=== PATIENT | female | born 1945 | race Caucasian/White ===

== ENCOUNTER 2017-04-26 11:00 | Inpatient (IN) | payer OTHER, BC ==
--- NOTE | 2017-05-09 11:31 | HP ---
Satellite H - Chief Complaint Chief Complaint: right knee pain - Past Medical History Allergies/Adverse Reactions: Allergies Allergy/AdvReac Type Severity Reaction Status Date / Time Iodine and Iodide Containing Allergy Severe RESPIRATORY Verified 04/25/17 12:23 Produc DISTRESS Shellfish Allergy Severe Swelling, Verified 04/25/17 11:59 RESPIRATORY DISTRESS No Known Drug Allergies Allergy Verified 04/25/17 11:59 - Current Medications Current Medications: Home Medications Medication Instructions Recorded Bimatoprost [Lumigan] 1 gtt OS DAILY 09/29/11 Brimonidine Tartrate/Timolol 1 gtt OS BID 09/29/11 [Combigan 0.2%-0.5% Eye Drops] Levothyroxine [Synthroid -] 100 mcg PO DAILY 09/29/11 Meclizine HCl [Antivert] 25 mg PO TID PRN #14 tablet 09/29/11 Albuterol Sulfate [Proventil HFA 1 - 2 inh PO TID PRN 04/25/17 Inhaler -] Dexlansoprazole [Dexilant] 60 mg PO DAILY 04/25/17 Duloxetine HCl [Cymbalta -] 30 mg PO HS 04/25/17 Satellite Physical Exam - Physical Examination General Appearance: Well Nourished, Well Developed, Alert & Oriented x3 ENT: Clear Lung: Normal air movement Heart: Regular rate & rhythm Extremities: Other (right knee- + swelling, + ttp, decr rom, nvi xrays show grade 4 tricompartmental djd) Neurological: Intact, Alert, Oriented Satellite Impression/Plan - Impression/Plan Impression: right knee djd Operative Procedure: right marisa tkr Date to be Performed: 05/10/17
[2017-05-10] MEDS ORDERED: CEFAZOLIN 2 GM in DEXTROSE 5%-WATER - 50 ML IVPB ONE (06:31)
[2017-05-10] MEDS ORDERED: GABAPENTIN 300 MG CAPSULE (FP) PO ONE (06:31)
[2017-05-10] MEDS ORDERED: CELECOXIB 200 MG CAPSULE PO ONE (06:31)
[2017-05-10] MEDS ORDERED: TRANEXAMIC ACID 1000 MG/10 ML VIAL IVPUSH ONE (06:31)
[2017-05-10] MEDS ORDERED: oxyCODONE HCL 10 MG SUSTAINED ACTING TABLET PO ONE (06:31)
[2017-05-10] MEDS ORDERED: BUPIVACAINE LIPOSOME/PF (EXPAREL) 266 MG/20 ML VIAL ONE (06:47)
[2017-05-10] MEDS ORDERED: DEXAMETHASONE SOD PHOSPHATE/PF 10 MG/ML SDV ONE (06:47)
[2017-05-10] MEDS ORDERED: BUPIVACAINE HCL/PF (5 MG/ML) 30 ML VIAL IJ ONE (06:48)
[2017-05-10] MEDS ORDERED: MIDAZOLAM HCL 2 MG/2 ML SINGLE DOSE VIAL ONE ×2 (06:48→08:12)
[2017-05-10] MEDS ORDERED: VANCOMYCIN 1,000 MG VIAL (RESTRICTED TO ID ONLY) ONE (07:05)
[2017-05-10] MEDS ORDERED: ceFAZolin SODIUM 1 GM VIAL ONE (07:05)
[2017-05-10 07:13] VITALS: BMI 38.6
[2017-05-10] MEDS ORDERED: PROPOFOL 20 ML ONE ×2 (08:27)
[2017-05-10] MEDS ORDERED: ePHEDrine SULFATE 50 MG/1 ML AMPULE ONE (08:41)
[2017-05-10] MEDS ORDERED: SUCCINYLCHOLINE CHLORIDE 200 MG/10 ML VIAL ONE (09:08)
[2017-05-10] MEDS ORDERED: TRANEXAMIC ACID 1000 MG/10 ML VIAL ONE (09:36)
[2017-05-10] MEDS ORDERED: VANCOMYCIN 1,000 MG VIAL (RESTRICTED TO ID ONLY) IVPB ONE (09:42)
[2017-05-10] MEDS ORDERED: oxyCODONE HCL 5 MG TABLET PO PRN (09:58)
[2017-05-10] MEDS ORDERED: ONDANSETRON 4 MG/2 ML VIAL IVPUSH PRN ×2 (09:58→10:15)
[2017-05-10] MEDS ORDERED: LACTATED RINGERS SOLUTION 1,000 ML IV SCH ×2 (10:00→10:15)
[2017-05-10] MEDS ORDERED: MAGNESIUM HYDROX 2400MG/30ML ORAL SUSPENSION 30 ML CUP PO PRN (10:15)
[2017-05-10] MEDS ORDERED: MAG HYDROX/AL HYDROX/SIMETH 30 ML UNIT-DOSE CUP PO PRN (10:15)
[2017-05-10] MEDS ORDERED: ALBUTEROL SO4 18 GM HFA INHALER IH PRN (10:17)
[2017-05-10] MEDS ORDERED: MECLIZINE HCL 25 MG TABLET (FP) PO PRN (10:17)
--- NOTE | 2017-05-10 10:19 | OP ---
Operative Note - Note: Operative Date: 05/10/17 (anastasiia) Pre-Operative Diagnosis: right knee djd Operation: right marisa tkr Post-Operative Diagnosis: Same as Pre-op Surgeon: Ramsey Traylor Support Coordinator: Nasir Wynne Anesthesiologist/DOFFER: Justice Nagy Anesthesia: Spinal, Local Specimens Removed: bone fragments Estimated Blood Loss (mls): 100 Operative Report Dictated: Yes
[2017-05-10] MEDS: ACETAMINOPHEN 325 MG TABLET (FP) PO SCH ×3 (10:59→21:25)
[2017-05-10] MEDS: oxyCODONE HCL 5 MG TABLET PO PRN ×3 (11:52→21:27)
[2017-05-10] MEDS: CEFAZOLIN 2 GM/D5W 2 GM/50 ML ML IVPB SCH ×2 (15:10→23:27)
[2017-05-10] MEDS: oxyCODONE HCL 10 MG SUSTAINED ACTING TABLET PO SCH ×2 (19:56→21:24)
[2017-05-10] MEDS ORDERED: PT OWN MED DRAWER 7, Y5N ONE (21:21)
[2017-05-10] MEDS: SENNOSIDES/DOCUSATE COMBO (SENNA PLUS) TABLET (UD) PO SCH (21:26)
[2017-05-10] MEDS: DULoxetine HCL 30 MG CAPSULE.DR (FP) PO SCH (21:27)
[2017-05-10] MEDS: LATANOPROST 0.005% OPHTH SOLN 2.5ML BOTTLE OS SCH (21:28)
[2017-05-10] MEDS: BRIMONIDINE TARTRATE 0.2% OPHTHALMIC 5 ML BOTTLE OS SCH (21:28)
[2017-05-10] MEDS: TIMOLOL 0.5% OPHTHALMIC SOL 5 ML BOTTLE OS SCH (21:28)
[2017-05-10] MEDS ORDERED: PATIENT'S OWN MEDICATION (NON-FORMULARY) (Brimonidine Tartrate/Timolol [Combigan 0.2%-0.5% OS SCH (22:00)
[2017-05-11] MEDS: ACETAMINOPHEN 325 MG TABLET (FP) PO SCH ×4 (04:00→21:40)
[2017-05-11] MEDS: LEVOTHYROXINE NA 100 MCG TABLET (FP) PO SCH (06:15)
[2017-05-11 08:58] LABS: MCHC 34.7 g/dl (32.0-36.0)
[2017-05-11 09:11] LABS: HEMATOCRIT 36.3 % (32.4-45.2); HEMOGLOBIN 12.6 GM/dl (10.7-15.3); MEAN PLT VOLUME 8.4 fl (7.5-11.1); PLATELET COUNT 358 K/MM3 (134-434); RBC 3.82 M/mm3 (3.60-5.2); WHITE BLOOD COUNT 16.3 K/mm3 (4.0-10.8)
--- NOTE | 2017-05-11 09:36 | PN ---
Progress Note (short form) - Note Progress Note: 71F POD1 s/p R TKR under spinal anesthetic with peripheral nerve blocks for post operative pain relief. Pt states that pain is well controlled, and reports no anesthetic complications. AVSS. Sensory and motor function is intact in bilateral lower extremities. Continue current regimen.
[2017-05-11] MEDS ORDERED: PT OWN MED DRAWER 7, Y5N ONE (09:39)
[2017-05-11] MEDS: oxyCODONE HCL 10 MG SUSTAINED ACTING TABLET PO SCH ×2 (09:42→21:39)
[2017-05-11] MEDS: PANTOPRAZOLE 40 MG TABLET (FP) PO SCH (09:42)
[2017-05-11] MEDS: MULTIVITAMINS (DAILY MVI) TABLET (FP) PO SCH (09:42)
[2017-05-11] MEDS: TIMOLOL 0.5% OPHTHALMIC SOL 5 ML BOTTLE OS SCH ×2 (09:43→21:41)
[2017-05-11] MEDS: SENNOSIDES/DOCUSATE COMBO (SENNA PLUS) TABLET (UD) PO SCH ×2 (09:43→21:39)
[2017-05-11] MEDS: BRIMONIDINE TARTRATE 0.2% OPHTHALMIC 5 ML BOTTLE OS SCH ×2 (09:43→21:42)
[2017-05-11] MEDS: ASPIRIN 325 MG TABLET PO SCH (09:44)
[2017-05-11] MEDS ORDERED: PATIENT'S OWN MEDICATION (NON-FORMULARY) (Dexlansoprazole [Dexilant] 60 MG) PO SCH (10:00)
[2017-05-11] MEDS ORDERED: BIMATOPROST OS SCH (10:00)
--- NOTE | 2017-05-11 12:05 | PATH ---
Surgical Pathology Report Patient Name: RHONDA PLATT Med. Rec. #: [id number] /Age/Gender: 1945 (Age: 71) / F Account: [id number] Location: [facility] MED-SURG Taken: 05/10/2017 Received: 05/10/2017 Reported: 05/11/2017 Physicians: Ramsey Traylor M.D. Specimen(s) Received RIGHT KNEE BONES Clinical History Osteoarthritis right knee Final Diagnosis KNEE, RIGHT, TOTAL KNEE REPLACEMENT: DEGENERATIVE JOINT DISEASE. Electronically Signed Esha Licea M.D. Gross Description Received in formalin labeled "right knee bones," is a 13.0 x 7.5 x 2.4 cm aggregate of multiple irregular portions of bone and soft tissue. The tibial plateau measures 7.0 x 4.6 x 1.5 cm. There are multiple areas of eburnation identified, measuring up to 2.4 cm in greatest dimension. The remaining articular surfaces are quintero-yellow and diffusely granular. The underlying trabecular bone is yellow and hard. Jewel Bearing Turner sections are submitted in one cassette, following decalcification. /05/10/201705/10/2017
[2017-05-11] MEDS: DULoxetine HCL 30 MG CAPSULE.DR (FP) PO SCH (21:40)
[2017-05-11] MEDS: LATANOPROST 0.005% OPHTH SOLN 2.5ML BOTTLE OS SCH (21:42)
[2017-05-12] MEDS: oxyCODONE HCL 5 MG TABLET PO PRN (02:18)
[2017-05-12] MEDS: ACETAMINOPHEN 325 MG TABLET (FP) PO SCH ×2 (05:47→09:33)
[2017-05-12] MEDS: LEVOTHYROXINE NA 100 MCG TABLET (FP) PO SCH (06:27)
[2017-05-12 07:10] VITALS: BP 141/60; PULSE 77; TEMP 97.5
[2017-05-12 08:06] LABS: HEMATOCRIT 31.5 % (32.4-45.2); HEMOGLOBIN 10.9 GM/dl (10.7-15.3); MCH 32.9 pg (25.7-33.7); MCHC 34.6 g/dl (32.0-36.0); MEAN CELL VOLUME 95.1 fl (80-96); MEAN PLT VOLUME 8.4 fl (7.5-11.1); PLATELET COUNT 283 K/MM3 (134-434); RBC 3.32 M/mm3 (3.60-5.2); RDW 12.1 % (11.6-15.6); WHITE BLOOD COUNT 10.9 K/mm3 (4.0-10.8)
--- NOTE | 2017-05-12 08:20 | PN ---
Progress Note (short form) - Note Progress Note: Ortho Pt seen and examined s/p right marisa tkr pod #2 Selected Entries 05/12/17 05:00 Temperature 97.5 F L Pulse Rate 77 Respiratory 19 Rate Blood Pressure 141/60 Laboratory Tests 05/11/17 08:13 WBC 16.3 H Hgb 12.6 Hct 36.3 Plt Count 358 dressing c/d/i, calf soft, nt rom 0-40, nvi a/p PT dvt ppx pain control d/c home today f/u in 1 week
--- NOTE | 2017-05-12 08:21 | DS ---
Physical Examination Vital Signs: Vital Signs Temperature 97.5 F L 05/12/17 05:00 Pulse Rate 77 05/12/17 05:00 Respiratory Rate 19 05/12/17 05:00 Blood Pressure 141/60 05/12/17 05:00 O2 Sat by Pulse Oximetry (%) 96 05/12/17 07:09 Discharge Summary Reason For Visit: OSTEOARTHRITIS Procedures: Principal: s/p right marisa tkr Hospital Course: admitted for elective right tkr, uneventful post-op ,stable for d/c Condition: Good - Instructions Diet, Activity, Other Instructions: Post-op Instructions-Total Knee Replacement Call the office for a follow-up appointment in 1 week - [phone] Aspirin 325mg daily for 6 weeks. Pain medication was sent into your pharmacy. Apply Graduated Compression Stockings (TEDs) to both lower extremities- remove daily for hygiene ONLY Apply Sequential Compression Device (SCDs) to both Lower extremities remove for PT and hygiene ONLY Apply cold packs to affected area for 15 minutes every 2 hours. Physical Therapist will come to your home for the first 5 days. You will be set up with outpatient PT at your first post-operative visit. Patient may ambulate as tolerated-encourage self care (at least every 2-3 hours while awake) with walker or cane Maintain Aquacel (waterproof) dressing to operative wound (will be removed by surgeon at first office visit) Shower with Aquacel dressing in place-if Aquacel integrity compromised, remove and apply dry sterile dressing and notify Orthopedist. DO NOT SHOWER unless Orthopedists approves without Aquacel dressing CONTACT THE OFFICE FOR ANY CHANGE IN YOUR CONDITION (for example-fever greater than 102 degrees, excessive bleeding from operative site, purulent drainage, severe swelling or pain) GO TO THE EMERGENCY ROOM IF THERE IS A MEDICAL EMERGENCY Knee Precautions: * Keep a rolled towel under affected heel while in bed or chair (to keep knee in extension) * Keep affected leg elevated except during mealtimes * DO NOT PLACE PILLOW UNDER AFFECTED KNEE * If you have any questions, please do not hesitate to call the office - . Referrals: Ramsey Traylor MD [Staff Physician] - Disposition: VNS/HOME HEALTH CARE - Home Medications Comprehensive Discharge Medication List: Ambulatory Orders Bimatoprost [Lumigan] 1 gtt OS DAILY 09/29/11 Brimonidine Tartrate/Timolol [Combigan 0.2%-0.5% Eye Drops] 1 gtt OS BID Levothyroxine [Synthroid -] 100 mcg PO DAILY 09/29/11 Meclizine HCl [Antivert] 25 mg PO TID PRN #14 tablet 09/29/11 Albuterol Sulfate [Proventil HFA Inhaler -] 1 - 2 inh PO TID PRN 04/25/17 Dexlansoprazole [Dexilant] 60 mg PO DAILY 04/25/17 Duloxetine HCl [Cymbalta -] 30 mg PO HS 04/25/17 Aspirin [ASA -] 325 mg PO DAILY@0800 tablet 05/10/17 Oxycodone HCl/Acetaminophen [Percocet 5-325 mg Tablet] 1 - 2 tab PO Q6H #50 tab MDD 8 05/10/17
[2017-05-12] MEDS: MULTIVITAMINS (DAILY MVI) TABLET (FP) PO SCH (09:31)
[2017-05-12] MEDS: ASPIRIN 325 MG TABLET PO SCH (09:32)
[2017-05-12] MEDS: PANTOPRAZOLE 40 MG TABLET (FP) PO SCH (09:33)
[2017-05-12] MEDS: SENNOSIDES/DOCUSATE COMBO (SENNA PLUS) TABLET (UD) PO SCH (09:34)
[2017-05-12] MEDS: TIMOLOL 0.5% OPHTHALMIC SOL 5 ML BOTTLE OS SCH (09:34)
[2017-05-12] MEDS: oxyCODONE HCL 10 MG SUSTAINED ACTING TABLET PO SCH (09:35)
[2017-05-12] MEDS: BRIMONIDINE TARTRATE 0.2% OPHTHALMIC 5 ML BOTTLE OS SCH (09:35)
--- NOTE | 2017-05-12 14:43 | SPEC ---
DATE OF OPERATION: 05/10/2017 PREOPERATIVE DIAGNOSIS: Degenerative joint disease, right knee. POSTOPERATIVE DIAGNOSIS: Degenerative joint disease, right knee. PROCEDURE: Right total knee replacement with robotic-assisted navigation (Makoplasty). SURGICAL ATTENDING: Ramsey Traylor M.D. SENIOR RESEARCH CONSULTANT: Flor Pereyra ANESTHESIA: Regional and spinal. CLOSURE: A Triathlon cemented knee system with a 3 femur, 3 tibia, 11 TS polyethylene, and 32 patella, number 1 Vicryl fascia, 0 and 2-0 subcutaneous, 3-0 Monocryl subcuticular with skin glue for skin, 4-0 undyed Vicryl for pin sites. ESTIMATED BLOOD LOSS: Less than 100 mL. COMPLICATIONS: None. CONDITION: To recovery room in stable condition. DESCRIPTION OF OPERATIVE PROCEDURE: Patient was taken to the operating room on May 10, 2017. Regional and spinal anesthesia was administered by the anesthesiologist. IV Kefzol and TXA were administered by the anesthesiologist. Well-padded pneumatic tourniquet was placed on the proximal thigh. The right lower extremity was prepped and draped in the usual sterile fashion. The leg was exsanguinated with an Esmarch bandage, and tourniquet was inflated to 275 mmHg. A 12 to 15-cm longitudinal midline incision was incised while centered over the patella. The dissection was carried down to the level of the extensor mechanism with sufficient flaps made to adequately perform the procedure. A medial parapatellar arthrotomy was then performed. We made a cuff of tissue on the patella for later closure. The patella was inverted, the knee was flexed up. The fat pad was excised. The subperiosteal dissection was on the anteromedial proximal tibia around towards the direction of the MCL. The ACL and the PCL were transected and debrided. The meniscal remnants of the medial and lateral meniscus were debrided and removed. This allowed the knee to be able to "be brought forward." The checkpoints were malleted into the tibia and into the femur. Two threaded pins were drilled anteroposteriorly proximal to the knee through the previous incision, through the anterior cortex, then just engaging the posterior cortex. To these pins was assembled the femoral navigation array. One handbreadth below the tibial tubercle, 2 stab incisions were used to drill 2 threaded pins in parallel fashion into the tibia, again through the anterior cortex and just engaging the posterior cortex. To these pins was fastened the tibial arrays. The knee was then registered with the navigation device with center of rotation of the hip, medial and lateral malleoli, both checkpoints, and multiple points on both the femur and the tibia to ensure excellent registration. The navigation device was directed off the "top of the bubbles" on both the femur and the tibia. The navigation passed within less than 0.5 mm to plan. The knee was then thoroughly inspected to remove all osteophytes both medially, laterally, and on the femur and the tibia, and whatever osteophytes were available for dissection. The knee was then taken to extension and to flexion, and stressed in both varus and valgus to assess flexion gaps. The virtual position of the components on the navigation device were then manipulated to optimize the position and to ensure equal gaps in both flexion and extension, and both medially and laterally. The robot was then brought into the field and was registered. The cuts were then made both on the femur and on the tibia as to plan. All osteophytes posteriorly were then removed as well. The gaps were then measured again in flexion and extension to be equal in both flexion and extension and medial and laterally. The femoral notch was then made, as we were doing a posterior stabilizing component, with the appropriate sized box. Trial reduction of the femur achieved excellent [id number] fit. A tibial baseplate of appropriate polyethylene thickness was "floated in the knee." It was ensured to be in the excellent position by navigation devices and was pinned in place. The knee was taken through a range of motion, and found to have excellent stability throughout flexion and extension. The patella was calibrated for thickness and osteotomized down to the appropriate level. The appropriate lollipop was used to drill the lug holes in the patella and the trial button was applied. The knee was taken through a range of motion and found to have excellent tracking of the patella, and patella from full extension to full flexion. Trial components were removed, the keel was punched and drilled, and a sclerotic bone on the tibia was drilled to help with cement interdigitation. The knee was thoroughly irrigated with the pulse antibiotic mattress spring encaser. The real components were then cemented in using monitored arrangement cement techniques with antibiotic cement, and pressurization and extension. After the cement was hardened, the knee was thoroughly inspected to remove any extra cement. The real polyethylene component was then clipped into place. Range of motion, stability, and tracking were as described earlier. The checkpoints and the pins were removed. The knee was thoroughly irrigated with antibiotic irrigation. Vancomycin powder was placed into the knee for antibiotic prophylaxis. The medial parapatellar arthrotomy was then closed using number 1 Vicryl interrupted suture. After closure of the deep layer, the knee was taken through a range of motion, and found to have excellent stability of the patella with no dislocation and no undue tension on the repair. The subcutaneous was pulse antibiotic irrigated, and was then closed with 2-0 Vicryl, 3-0 Monocryl subcuticular with the skin glue for the skin. The distal tibial pin site was irrigated thoroughly as well and then closed with 4-0 undyed Vicryl. A sterile Aquacel dressing was applied, followed by a Zimmerman dressing. Tourniquet was deflated. Total tourniquet time was approximately 75 minutes. No complications. Patient was awakened from anesthesia and transferred to recovery room in stable condition. Postoperative x-rays revealed excellent position of the components. Catarina [id number]
== END 2017-05-12 13:00 | disposition home health service (06) | DRG 470 ==
LOC: FM/S 05-10 06:08
PROVIDERS: ADMIT Orthopaedic Surgery; ATTEND Orthopaedic Surgery
PROC: 8E0Y0CZ Robotic Assisted Procedure of Lower Extremity, Open Approach (ICD-10-PCS; 2017-05-10)
PROC: 0SRC0J9 Replacement of Right Knee Joint with Synthetic Substitute, Cemented, Open Approach (ICD-10-PCS; principal; 2017-05-10 08:00)
DX: M17.11 Unilateral primary osteoarthritis, right knee (principal)
CPT/HCPCS: 36415; 73560-TC-RT-FY; 85027; 88304-TC; 88311-TC; 94010; 94760; 97116-GP; 97162-GP